=== PATIENT | female | born 1990 | race Caucasian/White ===

== ENCOUNTER 2019-11-12 12:48 | Outpatient (CLI) | payer OTHER ==
[2019-11-12] MEDS ORDERED: LIDOCAINE 1%, 10ML ONE (12:55)
== END 2019-11-12 23:59 | disposition home or self-care (01) ==
LOC: RAD 12:48
PROVIDERS: ATTEND Surgery
DX: R59.0 Localized enlarged lymph nodes (principal)
CPT/HCPCS: 38505; 76942; J3490

== ENCOUNTER 2019-11-25 08:48 | Outpatient (CLI) | payer OTHER ==
[2019-11-25] MEDS ORDERED: ACET-1600 PO (10:25)
[2019-11-25] MEDS ORDERED: ALPR0.25 PO (10:25)
== END 2019-11-25 23:59 | disposition home or self-care (01) ==
LOC: STAR 08:48
PROVIDERS: ATTEND Surgery
DX: Z01.818 Encounter for other preprocedural examination (principal); Z11.59 Encounter for screening for other viral diseases
CPT/HCPCS: 36415; 87635

== ENCOUNTER 2019-12-03 07:59 | Day surgery (SDC) | payer OTHER ==
[~2019-12-03] VITALS: Ht 165.1 cm; Wt 92.9 kg
[~2019-12-03 07:59] MED LIST: ACET-1600 PO; ALPR0.25 PO
[2019-12-03 08:24] VITALS: BP 114/76
[2019-12-03] MEDS ORDERED: LACTATED RINGERS 1,000 ML IV SCH (08:27)
[2019-12-03] MEDS ORDERED: CHLORHEXIDINE 15 ML UDC MM ONE (08:30)
[2019-12-03] MEDS ORDERED: CHLORHEXIDINE 15 ML UDC ONE (08:34)
[2019-12-03] MEDS ORDERED: FENTANYL PF 100 MCG/2ML ONE (09:00)
[2019-12-03] MEDS ORDERED: MIDAZOLAM 1 MG/ML, 2ML ONE (09:01)
[2019-12-03] MEDS ORDERED: BUPIVACAINE/PF-EPI 0.25% 1:200K ONE (09:20)
[2019-12-03] MEDS ORDERED: SUCCINYLCHOLINE 20 MG/ML, 10ML ONE (09:56)
[2019-12-03] MEDS ORDERED: DEXAMETHASONE 4 MG/ML, 1ML ONE (09:56)
[2019-12-03] MEDS ORDERED: PROPOFOL 10 MG/ML, 20ML ONE (09:56)
[2019-12-03] MEDS ORDERED: ROCURONIUM 10MG/ML,5ML ONE (09:56)
[2019-12-03] MEDS ORDERED: ONDANSETRON 2MG/ML, 2ML ONE (09:56)
[2019-12-03] MEDS ORDERED: GLYCOPYRROLATE 0.2MG/1ML, 5ML ONE (09:56)
[2019-12-03] MEDS ORDERED: NEOSTIGMINE 1 MG/ML, 10ML ONE (09:56)
[2019-12-03] MEDS ORDERED: CEFAZOLIN 1,000 MG ONE (09:56)
[2019-12-03] MEDS ORDERED: KETOROLAC 30 MG/1 ML ONE (09:56)
[2019-12-03] MEDS ORDERED: PROMETHAZINE 25 MG/ML, 1ML IV PRN (10:30)
[2019-12-03] MEDS ORDERED: PROMETHAZINE 25 MG/ML, 1ML ONE (10:30)
[2019-12-03] MEDS ORDERED: ACETAMINOPHEN 325 MG TABLET PO PRN (10:30)
[2019-12-03] MEDS ORDERED: DIAZEPAM 5 MG/ML, 2ML IVPush PRN (10:30)
[2019-12-03] MEDS ORDERED: hydrALAzine 20 MG/ML, 1ML IV PRN (10:30)
[2019-12-03] MEDS ORDERED: FENTANYL PF 100 MCG/2ML IV PRN (10:30)
[2019-12-03] MEDS ORDERED: HYDROmorphone 2 MG/ML, 1ML IVPush PRN (10:30)
[2019-12-03] MEDS ORDERED: ALBUTEROL SULFATE 2.5 MG/3 ML NPPB PRN (10:30)
[2019-12-03] MEDS ORDERED: MEPERIDINE/PF 25MG/0.5ML IVPush PRN (10:30)
[2019-12-03] MEDS ORDERED: OXYcodone 5 MG/5 ML ORAL.SOL UDC PO PRN (10:30)
[2019-12-03] MEDS ORDERED: LABETALOL 5MG/ML, 20ML IV PRN (10:30)
== END 2019-12-03 12:10 | disposition home or self-care (01) ==
LOC: OUT 07:59
PROVIDERS: ATTEND Surgery
DX: R59.1 Generalized enlarged lymph nodes (principal); Z11.59 Encounter for screening for other viral diseases; Z88.8 Allergy status to other drugs, medicaments and biological substances; Z90.710 Acquired absence of both cervix and uterus; Z98.890 Other specified postprocedural states; Z79.899 Other long term (current) drug therapy; Z72.89 Other problems related to lifestyle; Z87.891 Personal history of nicotine dependence
CPT/HCPCS: 38510; 87635; 88305; 88333; J0330; J0690; J1100; J1885; J2250; J2405; J2550; J2704; J3010; J7120; 36415; J2710